=== PATIENT | male | born 1950 | race Caucasian/White ===

== ENCOUNTER → 2020-03-20 08:34 | Outpatient (CLI) | payer MEDICARE, OTHER ==
[2013-08-11 06:11] VITALS: BMI 35.8
[~2020-03-20 08:34] MED LIST: LISINOPRIL10 MG; NORVASC5 MG PO
== END | disposition home or self-care (01) ==
LOC: D.US 08:34
PROVIDERS: ATTEND Family Medicine
DX: R10.11 Right upper quadrant pain (principal)

== ENCOUNTER → 2020-03-21 11:11 | Outpatient (CLI) | payer MEDICARE, OTHER ==
[2013-08-11 06:11] VITALS: BMI 35.8
== END | disposition home or self-care (01) ==
LOC: D.NM 11:11
PROVIDERS: ATTEND Family Medicine
DX: R10.11 Right upper quadrant pain (principal)

== ENCOUNTER → 2020-03-22 12:16 | Outpatient (CLI) | payer MEDICARE, OTHER ==
[2013-08-11 06:11] VITALS: BMI 35.8
== END | disposition home or self-care (01) ==
LOC: D.CT 12:16
PROVIDERS: ATTEND Family Medicine
DX: R10.9 Unspecified abdominal pain (principal)